=== PATIENT | female | born 1960 | race Caucasian/White ===

== ENCOUNTER 2024-06-02 08:28 | Outpatient (AMB) | payer OTHER, SELFPAY ==
--- NOTE | 2024-06-02 08:36 | A.OFFPC_ITS ---
Vital Signs 06/02/24 08:39 Height 5 ft 7 in Weight 289 lb BMI 45.3 BP 114/62 Blood Pressure Location Rt brachial Position Sitting Pulse 50 Pulse Source Pulse Oximeter Temp 97.8 F Temp Source Oral Pulse Oximetry (%) 99 Oxygen Delivery Method Room Air Intake Visit Reasons: Establish Care Intake Note: New patient visit Trade Mark Examiner Required: No Allergies No Known Allergies [No Known Allergies*] Allergy (Unverified 07/22/20 19:50) Medication List - Last Reconciled 06/02/24 by Tisha Forrester, CHECK OUT CASHIER- bupropion HCl XL 300 mg PO DAILY cholecalciferol (vitamin D3) 50 mcg PO DAILY citalopram 20 mg PO DAILY ferrous sulfate 325 mg PO DAILY lansoprazole 30 mg PO DAILY levothyroxine 125 mcg PO DAILY mecobalamin (vitamin B12) 1,000 mcg PO DAILY Tobacco use date assessed: 06/02/24 Fall risk assessment: No Falls in past year Last assessed Fall Risk: 06/02/24 Dental Screening Dental Screen Date: 06/02/24 Did you have a dental visit in the last 12 months?: Yes Did you have a dental problem in the last 6 months where you did not have access to dental care?: No Was dental information given to patient?: Patient has dentist HPI HPI Comments History of Present Illness Details 63-year-old female with obesity, hypothy roid, chronic GERD, IBS, MDD, INGRID, uterine cancer s/p ALINA, macular degeneration [wet in right, dry in the left], diverticulosis, iron def without anemia requiring IV iron in the past Surgical hx: reun-y gastric bypass 2018 s/p ALINA 5 years ago d/t Stage 1 uterine cancer 2019 bunionectomy 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 Health Maintenance: ? Colon 7 years ago, normal, 10 year recall. Will refer to GI in the future about 1 year before next screen colon due ? Mammo Nov 2023, reports normal. [facility]. Has standing order. ? DEXA ever. Declined ? PAP > [facility] PHYSICIAN OPHTHALMOLOGIST referral needed in [facility]. Cleared for Collections Technician Onc f/u. ? Tdap reports this was 2019, will get Flu at work along w/ COVID booster Has not had Shingles or PCV Specialists: PHYSICIAN OPHTHALMOLOGIST - needs new referral Retinal Specialist Dr Justin Kwong Here today to est care. No previous medical records. Moved to area w/ , Maryann [also a patient here] about 5 years ago from the [facility]. Medical care in the last 5 years has been in [place]. No medical records available to me today. Uterine cancer s/p [facility], reports Stage 1. No meds. Was ff'd by Collections Technician Onc while at the [facility]. Would like to est care w/ regular PHYSICIAN OPHTHALMOLOGIST. MDD & INGRID - Interested in psych referral - will be starting counseling online this week, uses services intermittently.. Sx are not well controlled. Anxious, less interest in life and work, not sleeping well. Sleep onset and maintenance; not using anything to help sleep; used melatonin which caused bad dream. Has never had sleep study. Sleep issues started in the last 3-4 years. Denies snoring or witnessed apnea. Was nodding off while living in the [facility]; not happening any more. >>> Reviewed indications for sleep study, no need @ this time. S/p gastric bypass, no longer ff'd by Surgeon. On Vit B12, Ferrous Sulfate, Vit D and multi Chronic GERD w/o esophagitis, EGD 7 years ago, reports WNL. Has never trialed taper off PPI. has stopped abruptly w/ return of sx. The other day at work, after only having a coffee, as she went to stand, felt very weak, presyncopal and diaphoretic. Was able to sit down. Drink h20 and ate banana to recover. However admits also a headache; took several hours to feel back to baseline. Does not feel like this was orthostatic per se. [place] hypoglycemic. Exam: Awake alert NAD MMM RRR LS CTAB + 1 edema BLE, hairless, skin intact Mood and affect appropriate Labs from today show a normal CBC, normal electrolytes, normal renal function, fasting glucose 102, hemoglobin A1c 5.4%, normal magnesium, normal phosphorus, normal iron and ferritin, normal LFTs, total cholesterol 209, LDL 106, HDL 85, B12 normal, vitamin-D normal, TSH and folate normal, urine microalbumin creatinine normal Plan: Try to taper off PPI. On lansoprazole 30mg QD, decrease to 15mg. Then will trial a slow taper off. Ask pharm about PCV and Shingles series Refill sent on celexa & levothyroxine, same dose. Check labs today to eval reason for the event at work. Slow position changes; hydrate liberally. Refer to Psych bridge program for asst w/ meds & plan. RTO in 6 weeks for CPE, sooner as needed. This note is constructed using voice recognition software. While every effort has been made to ensure accuracy in molding supervisor, still errors may have been included Sometimes, these errors may affect the content or meaning of the given sentence . Total time spent caring for the patient today was 45 minutes. This includes time spent before the visit reviewing the chart, time spent during the visit, and time spent after the visit on documentation [facility] Medical History (Updated 06/02/24 @ 09:44 by Tisha Forrester [facility]) Neuropathy Swelling Arthritis Thyroid disease GERD (gastroesophageal reflux disease) IBS (irritable bowel syndrome) Surgical History (Updated 06/02/24 @ 09:32 by Kary Mandel CMA) H/O bursectomy History of Jeanna-en-Y gastric bypass Family History (Updated 06/02/24 @ 09:25 by Kary Mandel CMA) Mother HTN (hypertension) Hypercholesteremia Diabetes Breast cancer Depression Maternal Grandmother Hypercholesteremia Paternal Grandfather COPD (chronic obstructive pulmonary disease) Father Alcoholism Social History Housing: House Patient Tobacco Use Status: Never used Tobacco e-Cigarette/Vaping Use: Never Used Second Hand Smoke Exposure: No service: No Current occupational status: employed 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 1. Little interest or pleasure in doing things: several days 2. Feeling down, depressed, or hopeless: several days 3. Trouble falling or staying asleep, or sleeping too much: several days 4. Feeling tired or having little energy: not at all 5. Poor appetite or overeating: more than half the days 6. Feeling bad about yourself - or that you are a failure or have let yourself or your family down: not at all 7. Trouble concentrating on things, such as reading the newspaper or watching television: several days 8. Moving or speaking so slowly that other people could have noticed. Or the opposite - being so fidgety or restless that you have been moving around a lot more than usual: not at all 9. Thoughts that you would be better off or of hurting yourself in some way: not at all Total score: 6 Depression Screening Interpretation: Positive Depression Screening Follow-up: Existing condition and In treatment Depression Screening Done: Yes Source: Developed by Drs. Audie Babcock, Faustina Arias, Vinny Hauser and colleagues, with an educational guillermo from [employer]. Thrive Questionnaire Date Thrive assessed: 06/02/24 I am a: Patient What is your living situation today?: I have a steady place to live Within the past 12 months, did the food you bought not last and you didn't have the money to get more?: Never true Within the past 12 months, did you worry whether your food would run out before you got money to buy more?: Never true Do you have trouble paying for medicines?: No Do you have trouble getting transportation to medical appointments?: No Do you have trouble paying your heating and electricity bill?: No Do you have trouble taking care of your child, family member or friend?: No Do you have trouble with day-to-day activities such as bathing, preparing meals, shopping, managing finances, etc.?: No Are you currently unemployed and looking for a job?: No Are you interested in more education?: No Please select the resources that you would like help with: None Currently or been in a relationship where the following occur: No concerns reported THRIVE Score: 0 AUDIT C Alcohol Use Questionnaire (AUDIT-C) 1. How often do you have a drink containing alcohol?: Never 3. How often do you have six or more drinks on one occasion?: Never Total Score: 0 Score Reviewed/Action Taken: Yes INGRID-7 AMB Questionnaire INGRID-7 Date INGRID - 7 assessed: 06/02/24 Feeling nervous, anxious, or on edge: 3 = Nearly every day Not being able to stop or control worryin = More than half the days Worrying too much about different things: 2 = More than half the days Trouble relaxin = More than half the days Being so restless that it is hard to sit still: 0 = Not at all Becoming easily annoyed or irritable: 2 = More than half the days Feeling afraid as if something awful might happen: 2 = More than half the days Total INGRID-7 score (0-4 normal; 5-9 mild; 10-14 moderate; 15-21 severe): 13 Source: Developed by Drs. Audie Babcock, Faustina Arias, Vinny Hauser and colleagues, with an educational guillermo from [employer]. INGRID-7 Assessment Billing INGRID-7 Assessment Tool: INGRID-7 Assessment 79303 Physical exam (Primary Care) Vital Signs: Last Vital Signs Temp 97.8 F 06/02/24 08:39 Pulse 50 06/02/24 08:39 BP 114/62 06/02/24 08:39 Pulse Ox 99 06/02/24 08:39 Oxygen Delivery Method Room Air 06/02/24 08:39 BMI result Body Mass Index 45.3 BMI Assessment/Plan discussion: High BMI High, discussed plan: lifestyle Tobacco/Smoking Status: Tobacco use Status Tobacco use date assessed 06/02/24 06/02/24 08:38 Patient Tobacco Use Status Never used Tobacco 06/02/24 08:38 e-Cigarette/Vaping Use Never Used 06/02/24 08:38 PHQ-9: PHQ-9 Score PHQ-9: Total score 6 06/02/24 09:45 Depression Screening Interpretation: Positive Depression Screening Follow-up: Existing condition and In treatment Thrive Assessment: Date of Thrive Assessment Date Thrive assessed 06/02/24 06/02/24 09:30 Currently or been in a relationship where the following occur: No concerns reported Assessment and Plan Assessment & Plan (1) Hypothyroid: Code(s): E03.9 - Hypothyroidism, unspecified Qualifiers: Hypothyroidism type: acquired Qualified Code(s): E03.9 - Hypothyroidism, unspecified (2) Morbid obesity with BMI of 45.0-49.9, adult: Comment: bmi > 45 Code(s): E66.01 - Morbid (severe) obesity due to excess calories; Z68.42 - Body mass index [BMI] 45.0-49.9, adult (3) GERD without esophagitis: Code(s): K21.9 - Gastro-esophageal reflux disease without esophagitis (4) INGRID (generalized anxiety disorder): Code(s): F41.1 - Generalized anxiety disorder (5) MDD (major depressive disorder), recurrent episode: Code(s): F33.9 - Major depressive disorder, recurrent, unspecified Qualifiers: Major depression episode severity: moderate Qualified Code(s): F33.1 - Major depressive disorder, recurrent, moderate (6) Insomnia: Code(s): G47.00 - Insomnia, unspecified Qualifiers: Insomnia type: due to other mental disorder Qualified Code(s): F51.05 - Insomnia due to other mental disorder; F99 - Mental disorder, not otherwise specified (7) Iron deficiency: Code(s): E61.1 - Iron deficiency (8) Gastric bypass status for obesity: Code(s): Z98.84 - Bariatric surgery status (9) Uterine cancer: Comment: uterine cancer s/p [facility], Stage 1 2019 Code(s): C55 - Malignant neoplasm of uterus, part unspecified Qualifiers: Malignant neoplasm of uterus location: unspecified site of uterus Qualified Code(s): C55 - Malignant neoplasm of uterus, part unspecified (10) Diverticulosis: Code(s): K57.90 - Diverticulosis of intestine, part unspecified, without perforation or abscess without bleeding (11) Macular degeneration of both eyes: Comment: macular degeneration [wet in right, dry in the left] Code(s): H35.30 - Unspecified macular degeneration Qualifiers: Macular degeneration type: unspecified type Qualified Code(s): H35.30 - Unspecified macular degeneration Orders: Orders Complete Blood Count no Diff Today E03.9 - Hypothyroidism, unspecified, E61.1 - Iron deficiency, Z98.84 - Bariatric surgery status Hemoglobin A1c Today E03.9 - Hypothyroidism, unspecified, E61.1 - Iron deficiency, Z98.84 - Bariatric surgery status Lipid Panel Today E03.9 - Hypothyroidism, unspecified, E61.1 - Iron deficiency, Z98.84 - Bariatric surgery status Vitamin B12 and Folate Today E03.9 - Hypothyroidism, unspecified, E61.1 - Iron deficiency, Z98.84 - Bariatric surgery status Ferritin Today E03.9 - Hypothyroidism, unspecified, E61.1 - Iron deficiency, Z98.84 - Bariatric surgery status Vitamin D 25-OH Total Today E03.9 - Hypothyroidism, unspecified, E61.1 - Iron deficiency, Z98.84 - Bariatric surgery status Magnesium Today E03.9 - Hypothyroidism, unspecified, E61.1 - Iron deficiency, Z98.84 - Bariatric surgery status Phosphorus Today E03.9 - Hypothyroidism, unspecified, E61.1 - Iron deficiency, Z98.84 - Bariatric surgery status Comprehensive [place]. Panel Fast Today E03.9 - Hypothyroidism, unspecified, E61.1 - Iron deficiency, Z98.84 - Bariatric surgery status IRON PROFILE Today E03.9 - Hypothyroidism, unspecified, E61.1 - Iron deficiency, Z98.84 - Bariatric surgery status Microalbumin, Random (w Creat) Today E03.9 - Hypothyroidism, unspecified, E61.1 - Iron deficiency, Z98.84 - Bariatric surgery status TSH reflex Free T4 Today E03.9 - Hypothyroidism, unspecified, E61.1 - Iron deficiency, Z98.84 - Bariatric surgery status Referrals Psychiatry Outpatient Consultation Service F33.9 - Major depressive disorder, recurrent, unspecified, F41.1 - Generalized anxiety disorder, G47.00 - Insomnia, unspecified INSTALLATION SPECIALIST Referral C55 - Malignant neoplasm of uterus, part unspecified Medications: New citalopram 20 mg PO DAILY 90 tabs 0RF levothyroxine 125 mcg PO DAILY 90 tabs 1RF Patient Instructions: Plan: Ask pharm about PCV and Shingles series Refil sent on celexa; refil levo based on labs RTO in 6 weeks for CPE, sooner as needed. Walk-In Care (Urgent Care): We Make it Easy Walk-in for urgent medical issues such as: ? Seasonal Allergies ? Insect Bites ? Cough ? Diarrhea ? Acute Asthma Attacks ? Back, Knee or Joint Pain ? Ear Infection ? Fever without a Rash ? Headaches ? Nausea ? [place], Rash or Skin Irritation ? Sore Throat ? Sports Physicals ? Vomiting Most insurances are accepted. Patients do not need to be part of the [facility] to seek care at the walk-in clinic. Locations [address] [facility] , [place] [address] ? [phone] [facility] Walk-In Care in [place] provides services to ages 18 and over. Open Sunday-Sunday: 8 a.m. to 5 p.m. and Sunday: 9 a.m. to 3 p.m.* *Hours may vary due to staffing availability. To confirm Walk-In Care hours in [place], please call [phone]. [address] [place] [address] ? [phone] [facility] Walk-In Care in [place] provides services to ages 12 and over. Open Sunday-Sunday: 8 a.m. to 5 p.m. Hours may vary due to staffing availability. To confirm Walk-In Care hours in [place], please call [phone]. LABORATORY SERVICES: [facility] ? Primary Location [address] [place] [address] Sunday through Sunday 6:00 AM ? 5:00 PM Sunday 7:00 AM ? 11:00 AM* [phone] The [facility] is centrally located near the front entrance of the [facility] for easy outpatient access. Convenient parking is provided for outpatients. *Hours may vary due to staffing availability. To confirm Laboratory hours for any location, please call [phone]. Offsite Location For your convenience, we offer offsite laboratory draw stations at the following locations: [address] [place] [address] ? [address], [address] Sunday through Sunday 7:30 AM ? 1:00 PM* [phone] *Hours may vary due to staffing availability. To confirm Laboratory hours for any location, please call [phone]. [place] ? [address] Sunday through Sunday 6:00 AM ? 3:30 PM* Sunday 6:30 AM ? 3 PM* [phone] *Hours may vary due to staffing availability. To confirm Laboratory hours for any location, please call [phone] [place] [address] Sunday through Sunday 7:30 AM ? 4:00 PM* [phone] *Hours may vary due to staffing availability. To confirm Laboratory hours for any location, please call [phone] [place] [address] Sunday through 9:00 AM ? 4:00 PM* *Hours may vary due to staffing availability. To confirm Laboratory hours for any location, please call [phone]. Appointments are not necessary. Walk-ins are welcome. Like all the departments throughout the [facility], our Lab undergoes frequent reviews to ensure the quality and accuracy of test results, and our staff takes special pride in its status as a nationally accredited facility. Patient Portal: ONE PATIENT. ONE RECORD. BETTER CARE. [facility] has a fully integrated, cutting- edge mobile electronic health information system that has revolutionized the way we care for our patients and manage our organization. This system improves communication and coordination enabling us to provide safe, higher-quality care, and an overall positive experience for staff and patients. Our first priority, as always, is to deliver the highest quality care possible. The system is running in the background supporting that priority. This portal is for all [facility] services and practices. If you are experiencing any technical difficulties with enrolling or logging into the Patient Portal please complete the [facility] Patient Portal Technical Support Form. [facility] now offers a new secure on-line interactive tool for patients to review their health information ? Patient Portal. This interactive web portal will enable patients and their families to take an active role in their care by providing easy, secure access to their health information via the internet. The Patient Portal provides patients with instant access to their health information, including laboratory results, medications, allergies, demographic information, visit history, and more. In addition to managing their own care, parents and health care proxies with authorized consent will appreciate the ability to access the records of those individuals for whom they provide care. Please note: if you wish to gain access (Proxy) to another patient?s portal, you will be required to come to the Medical Records Department in person at [facility]. Both the patient giving proxy access and the proxy will need to provide photo identification and complete the appropriate authorization. The Patient Portal also allows track their appointments online. The [facility] Patient Portal also saves patients time by allowing them to submit updates to their demographic and contact information prior to their visits. Portal email notifications will also alert patients to any new activity on their portal, such as test results and new appointments. In order to initially enroll in the [facility] Patient Portal, you will need to enter some required information including the following: ? your [facility] Medical Record number ? your personal home email address ? name ? date of Please note: In order to enroll in the [facility] Patient Portal, we need to have your email address on file in your electronic medical record. The email address needs to be specific for one person (yourself) in order for your Portal enrollment to be successful. You can update your email address in person with our Registration staff when you are registering for a hospital visit. O justinawise, you will need to come to the Health Information Management (Medical Records) Department at [facility]. We are open from Sunday ? Sunday from 7:30 a.m. ? 4:30 p.m. You will be required to present a photo id. Once you have successfully enrolled in the Patient Portal, you will receive a one-time user id and password for the Portal, sent to your email address. This will allow you to log into the Patient Portal within 99 hrs and reset your own logon id and password, and define personal security questions. Once your permanent login and password have been set, you can log into the [facility] Patient Portal at any time via the blue button above or from the Portal Logon button on any page of the [facility] website. [facility] encourage all of our patients to enroll in Patient Portal as it presents a valuable opportunity for patients and their families to actively participate in their care and stay healthy Welcome to [facility]. We look forward to working with you. Coding Level of Care Code New Pt Level 4 (02147) Diagnoses Acquired hypothyroidism E03.9 Hypothyroidism type: acquired Morbid obesity with BMI of 45.0-49.9, adult E66.01; Z68.42 GERD without esophagitis K21.9 INGRID (generalized anxiety disorder) F41.1 Moderate episode of recurrent major depressive disorder F33.1 Major depression episode severity: moderate Insomnia due to other mental disorder F51.05; F99 Insomnia type: due to other mental disorder Iron deficiency E61.1 Gastric bypass status for obesity Z98.84 Malignant neoplasm of uterus, unspecified site C55 Malignant neoplasm of uterus location: unspecified site of uterus Diverticulosis K57.90 Macular degeneration of both eyes, unspecified type H35.30 Macular degeneration type: unspecified type Additional Codes INGRID-7 Assessment Billing - INGRID-7 Assessment Tool: INGRID-7 Assessment [id number] ([id number])
[2024-06-02 08:39] VITALS: BP 114/62; PULSE 50; TEMP 36.6; O2SAT 99; BMI 45.3
== END 2024-06-02 09:22 | disposition home or self-care (01) ==
PROVIDERS: PCP Nurse Practitioner Family; Visit Provider Nurse Practitioner Family
DX: E03.9 Hypothyroidism, unspecified (principal); E66.01 Morbid (severe) obesity due to excess calories; Z68.42 Body mass index [BMI] 45.0-49.9, adult; K21.9 Gastro-esophageal reflux disease without esophagitis; F41.1 Generalized anxiety disorder; F33.1 Major depressive disorder, recurrent, moderate; F51.05 Insomnia due to other mental disorder; F99 Mental disorder, not otherwise specified; E61.1 Iron deficiency; Z98.84 Bariatric surgery status; Z85.42 Personal history of malignant neoplasm of other parts of uterus; K57.90 Diverticulosis of intestine, part unspecified, without perforation or abscess without bleeding; H35.30 Unspecified macular degeneration
CPT/HCPCS: 96127; 99204

== ENCOUNTER 2024-06-02 09:26 | Outpatient (REF) | payer OTHER, SELFPAY ==
[2024-06-02 11:34] LABS: Hematocrit 46.5 % (37.0-47.0); Hemoglobin 14.9 g/dl (12.0-16.0); Mean Corpuscular Hemoglobin 30.5 pg (27.0-33.0); Mean Corpuscular Volume 95.3 fL (80.0-98.0); Mean Platelet Volume 10.7 fL (9.4-12.3); Platelet Count 329 X10*3/uL (160-400); Red Blood Count 4.88 X10*6/uL (4.20-5.50); White Blood Count 6.2 X10*3/uL (4.8-10.8)
[2024-06-02 11:40] LABS: Estimated Average Glucose 108 mg/dL; Hemoglobin A1c % 5.4 % (<6.0)
[2024-06-02 12:30] LABS: Alanine Aminotransferase 14 U/L (0-31); Albumin Level 4.3 g/dL (3.5-5.0); Alkaline Phosphatase 109 U/L (39-117); Anion Gap 12 (12-20); Aspartate Amino Transferase 13 U/L (5-31); Bilirubin Total 0.5 mg/dL (0.0-1.0); Blood Urea Nitrogen 11 mg/dL (9-16); Calcium 9.9 mg/dL (8.4-10.2); Carbon Dioxide 28 mmol/L (22-29); Chloride 106 mmol/L (96-108); Cholesterol 209 mg/dL (<200); Estimated Glomerular Filt Rate > 60; Glucose Fasting 102 mg/dL (60-99); HDL Cholesterol 85 mg/dL (>40); Iron 134 mcg/dL (30-160); LDL Cholesterol Calculated 106 mg/dL (<100); Magnesium 2.4 mg/dL (1.6-2.6); Percent Iron Saturation 40 % (15-50); Phosphorus 3.5 mg/dL (2.7-4.5); Potassium 3.8 mmol/L (3.3-5.1); Sodium 142 mmol/L (135-145); Total Iron Binding Capacity 331 mcg/dL (228-428); Total Protein 7.3 g/dL (6.5-8.0); Triglycerides 91 mg/dL (<150); Unsaturated Iron Binding 197 ug/dL
[2024-06-02 12:31] LABS: Folate 10.2 ng/mL (> or = 4.0); Vitamin B12 663 pg/mL (200-900)
[2024-06-02 12:44] LABS: Ferritin 23 ng/mL (10-250); TSH reflex Free T4 1.95 uIU/mL (0.32-4.0)
[2024-06-02 13:09] LABS: Creatinine Urine 101.82 mg/dL; Microalbumin Urine < 5.0 mg/L
== END 2024-06-02 09:27 | disposition home or self-care (01) ==
LOC: HO.WFDLDS 09:26
PROVIDERS: Visit Provider Nurse Practitioner Family
DX: E61.1 Iron deficiency (principal); Z98.84 Bariatric surgery status; E03.9 Hypothyroidism, unspecified; Z13.1 Encounter for screening for diabetes mellitus
CPT/HCPCS: 36415; 80053; 80061; 82043; 82306; 82570; 82607; 82728; 82746; 83036; 83540; 83735; 84100; 84443; 85027

== ENCOUNTER 2024-07-16 11:56 | Outpatient (AMB) | payer OTHER, SELFPAY ==
--- NOTE | 2024-07-16 11:58 | A.OFFPC_ITS ---
Vital Signs 07/16/24 12:04 Height 5 ft 7 in Weight 291 lb 4 oz BMI 45.6 BP 116/68 Blood Pressure Location Rt brachial Position Sitting Respiration 15 Pulse 75 Pulse Source Pulse Oximeter Pulse Oximetry (%) 98 Oxygen Delivery Method Room Air Intake Visit Reasons: 6 weeks CPE Intake Note: Patient is here for a physical. Allergies No Known Allergies [No Known Allergies*] Allergy (Verified 07/16/24 12:00) Medication List - Last Reconciled 07/16/24 by ROSE GandhiP- bupropion HCl XL 300 mg PO DAILY cholecalciferol (vitamin D3) 50 mcg PO DAILY citalopram 20 mg PO DAILY ferrous sulfate 325 mg PO DAILY lansoprazole 30 mg PO DAILY levothyroxine 125 mcg PO DAILY mecobalamin (vitamin B12) 1,000 mcg PO DAILY Tobacco use date assessed: 06/02/24 Dental Screening Dental Screen Date: 06/02/24 HPI HPI Comments History of Present Illness Details 63-year-old female with obesity, hypothy roid, chronic GERD, IBS, MDD, INGRID, uterine cancer s/p ALINA, macular degeneration [wet in right, dry in the left], diverticulosis, iron def without anemia requiring IV iron in the past Surgical hx: reun-y gastric bypass 2018 s/p ALINA 5 years ago d/t Stage 1 uterine cancer 2019 bunionectomy tonsillectomy 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 Health Maintenance: ?Colon 7 years ago, normal, 10 year recall. Will refer to GI in the future about 1 year before next screen colon due ?Mammo Nov 2023, reports normal. [facility]. Has standing order. ?DEXA never. Declined ?PAP > [facility] REPRODUCTION PRODUCTION MANAGER referral needed in [facility]. Cleared for Spooling Supervisor Onc f/u. ?Tdap reports this was 2019, will get Flu at work along w/ COVID booster Has not had Shingles or PCV Specialists: REPRODUCTION PRODUCTION MANAGER - referred to [facility], told they are not taking new patients. Working on est care, will let me know if i need to send updated referral Retinal Specialist Dr Justin richardt 1 week ago, has not required injections in 1 year. Both eyes are dry. Optho Dr Elenita Weiss referred to bridge program at last OV, still has not heard. Chart reviewed, cleared to be seen but not scheduled. I have sent a message to Alvin Rasheed to schedule her. Here today for CPE. No further events. Skin - no worries or concerns Has episodes of purpura with scratching forearms. Declined Derm at this time. GI - taking 30mg every other day; reflux sx are well controlled. Will trial 15mg every other day w goal of stopping. Needs refills of all meds sent to [facility], leaving [facility]. Breathing is good. No chest pain. No falls. No ED or hospital visits. Normal bowel movements Stress incont. Not bothersome. Wears pad. Thigh cramps at night. Started self on Ca+ this has improved. Diet - not great. + wt gain. Will work on this. ACP: Has HCP in place. No MOLST. NO living Will. Plan: Cont meds as currently prescribed except cont to try to taper off PPI Let me know about REPRODUCTION PRODUCTION MANAGER FU with Psych let me know if you dont hear from them Consider MOLST and bring back along w/ HCP Work on getting PCV and Shingles please Consider echo in the future for murmur and edema BLE let me know if purpura on bilat arms gets worse RTO 6 months routine f/u labs 1 week before, sooner PRN [facility] Medical History (Updated 07/16/24 @ 14:58 by Tisha Forrester, [facility]) Neuropathy Swelling Arthritis Thyroid disease GERD (gastroesophageal reflux disease) IBS (irritable bowel syndrome) Surgical History (Updated 06/02/24 @ 09:32 by Kary Mandel CMA) H/O bursectomy History of Jeanna-en-Y gastric bypass Family History (Updated 06/02/24 @ 09:25 by Kary Mandel CMA) Mother HTN (hypertension) Hypercholesteremia Diabetes Breast cancer Depression Maternal Grandmother Hypercholesteremia Paternal Grandfather COPD (chronic obstructive pulmonary disease) Father Alcoholism Social History Housing: House Patient Tobacco Use Status: Never used Tobacco e-Cigarette/Vaping Use: Never Used Second Hand Smoke Exposure: No service: No Current occupational status: employed 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 1. Little interest or pleasure in doing things: several days 2. Feeling down, depressed, or hopeless: more than half the days 3. Trouble falling or staying asleep, or sleeping too much: more than half the days 4. Feeling tired or having little energy: more than half the days 5. Poor appetite or overeating: more than half the days 6. Feeling bad about yourself - or that you are a failure or have let yourself or your family down: not at all 7. Trouble concentrating on things, such as reading the newspaper or watching television: several days 8. Moving or speaking so slowly that other people could have noticed. Or the opposite - being so fidgety or restless that you have been moving around a lot more than usual: not at all 9. Thoughts that you would be better off or of hurting yourself in some way: not at all Total score: 10 Depression Screening Interpretation: Positive Depression Screening Done: Yes 53561 - PHQ-9 Billing: Yes Source: Developed by Drs. Audie Babcock, Faustina Arias, Vinny Hauser and colleagues, with an educational guillermo from [employer]. Thrive Questionnaire Date Thrive assessed: 07/16/24 I am a: Patient What is your living situation today?: I have a steady place to live Within the past 12 months, did the food you bought not last and you didn't have the money to get more?: Never true Within the past 12 months, did you worry whether your food would run out before you got money to buy more?: Never true Do you have trouble paying for medicines?: No Do you have trouble getting transportation to medical appointments?: No Do you have trouble paying your heating and electricity bill?: No Do you have trouble taking care of your child, family member or friend?: No Do you have trouble with day-to-day activities such as bathing, preparing meals, shopping, managing finances, etc.?: No Are you currently unemployed and looking for a job?: No Are you interested in more education?: No Please select the resources that you would like help with: None THRIVE Score: 0 INGRID-7 AMB Questionnaire INGRID-7 Date INGRID - 7 assessed: 07/16/24 Feeling nervous, anxious, or on edge: 1 = Several days Not being able to stop or control worryin = Several days Worrying too much about different things: 1 = Several days Trouble relaxin = Several days Being so restless that it is hard to sit still: 1 = Several days Becoming easily annoyed or irritable: 2 = More than half the days Feeling afraid as if something awful might happen: 0 = Not at all Total INGRDI-7 score (0-4 normal; 5-9 mild; 10-14 moderate; 15-21 severe): 7 Source: Developed by Drs. Audie Babcock, Faustina Arias, Vinny Hauser and colleagues, with an educational guillermo from [employer]. INGRID-7 Assessment Billing INGRID-7 Assessment Tool: INGRID-7 Assessment 09632 Physical exam (Primary Care) Vital Signs: Last Vital Signs Pulse 75 07/16/24 12:04 Resp 15 07/16/24 12:04 BP 116/68 07/16/24 12:04 Pulse Ox 98 07/16/24 12:04 Oxygen Delivery Method Room Air 07/16/24 12:04 BMI result Body Mass Index 45.6 BMI Assessment/Plan discussion: High BMI High, discussed plan: lifestyle Tobacco/Smoking Status: Tobacco use Status Tobacco use date assessed 06/02/24 07/16/24 12:00 Patient Tobacco Use Status Never used Tobacco 07/16/24 12:00 e-Cigarette/Vaping Use Never Used 07/16/24 12:00 PHQ-9: PHQ-9 Score PHQ-9: Total score 10 07/16/24 12:09 Depression Screening Interpretation: Positive Thrive Assessment: Date of Thrive Assessment Date Thrive assessed 07/16/24 07/16/24 12:07 Advance Care Planning discussion: Exists, not on file Date of discussion: 07/16/24 Who was present: self Forms completed: MOLST Time spent: 1-15 minutes, not on file Actual minutes spent: 3 Const Other: General: Well developed, well nourished, in no acute distress. Appears stated age. Head: Normocephalic, atraumatic. Eyes: Pupils are equal, round and reactive to light and accommodation. Conjunctivae are clear. Vision grossly normal. Ears: TMs clear AU, EACS WNL Nose: Patent, without discharge. Mouth: There are no ulcers or lesions noted. No inflammation, no post nasal drip, no plaques nor exudates. Neck: Supple, no adenopathy or thyromegaly. Lungs: Clear to auscultation bilaterally. No rales, rhonchi or wheeze noted. Good air flow in all piña. Heart: Regular rate and rhythm. No click, rubs or gallops are noted. 1/6 systolic murmur L sternal border Abdomen: Bowel sounds present in all quadrants. The abdomen is soft, nontender, with no masses or organomegaly noted. No hernias are noted. Musculoskeletal: Joints are nontender, without swelling, redness, or effusions. Range of motion is observed to be normal. Pulses: Peripheral pulses are equal and palpable bilaterally. Extremities: No clubbing, cyanosis noted. +1 edema ble, R>L, decreased PP bilat, skin intact Neurologic: Gait and station normal. Cranial Nerves 2-12 intact. Motor strengt h grossly symmetrical and intact. No sensory loss. Balance normal. Skin: No ulcers, or lesions noted. Turgor is good. Skin color is good. Hair and nails are without abnormalities. Fungal rash under pannus - mild Psych: Normal eye contact, affect and mood appropriate, and normal interactions. Patient is alert and appropriate to context. Assessment and Plan Assessment & Plan (1) Hypothyroid: Code(s): E03.9 - Hypothyroidism, unspecified Qualifiers: Hypothyroidism type: acquired Qualified Code(s): E03.9 - Hypothyroidism, unspecified (2) Iron deficiency: Code(s): E61.1 - Iron deficiency (3) Gastric bypass status for obesity: Code(s): Z98.84 - Bariatric surgery status (4) Heart murmur: Code(s): R01.1 - Cardiac murmur, unspecified (5) PVD (peripheral vascular disease): Code(s): I73.9 - Peripheral vascular disease, unspecified (6) Menopause: Code(s): Z78.0 - Asymptomatic menopausal state (7) Encounter for general adult medical examination without abnormal findings: Code(s): Z00.00 - Encounter for general adult medical examination without abnormal findings (8) Advance care planning: Code(s): Z71.89 - Other specified counseling (9) GERD without esophagitis: Code(s): K21.9 - Gastro-esophageal reflux disease without esophagitis Orders: Orders Comprehensive [place]. Panel Fast 11/05/24 E03.9 - Hypothyroidism, unspecified, E61.1 - Iron deficiency, Z98.84 - Bariatric surgery status Lipid Panel 11/05/24 E03.9 - Hypothyroidism, unspecified, E61.1 - Iron deficiency, Z98.84 - Bariatric surgery status Vitamin D 25-OH Total 11/05/24 E03.9 - Hypothyroidism, unspecified, E61.1 - Iron deficiency, Z98.84 - Bariatric surgery status Vitamin B12 and Folate 11/05/24 E03.9 - Hypothyroidism, unspecified, E61.1 - Iron deficiency, Z98.84 - Bariatric surgery status Hemoglobin A1c 11/05/24 E03.9 - Hypothyroidism, unspecified, E61.1 - Iron deficiency, Z98.84 - Bariatric surgery status TSH reflex Free T4 11/05/24 E03.9 - Hypothyroidism, unspecified, E61.1 - Iron deficiency, Z98.84 - Bariatric surgery status IRON PROFILE 11/05/24 E03.9 - Hypothyroidism, unspecified, E61.1 - Iron deficiency, Z98.84 - Bariatric surgery status Medications: New bupropion HCl XL 300 mg PO DAILY 90 tabs 0RF Changed From lansoprazole 30 mg PO DAILY To lansoprazole taper off 30 mg PO DAILY 30 caps 0RF From cholecalciferol (vitamin D3) 50 mcg PO DAILY To cholecalciferol (vitamin D3) 50 mcg PO DAILY 90 days 90 caps 2RF From ferrous sulfate 325 mg PO DAILY To ferrous sulfate 325 mg PO DAILY 90 days 90 tabs 2RF From mecobalamin (vitamin B12) 1,000 mcg PO DAILY To mecobalamin (vitamin B12) 1,000 mcg PO DAILY 90 days 90 tabs 2RF Refilled citalopram 20 mg PO DAILY 90 tabs 0RF Coding Level of Care Code Est Pt Prev Care 40-64y(51269) Diagnoses Acquired hypothyroidism E03.9 Hypothyroidism type: acquired Iron deficiency E61.1 Gastric bypass status for obesity Z98.84 Heart murmur R01.1 PVD (peripheral vascular disease) I73.9 Menopause Z78.0 Encounter for general adult medical examination without abnormal findings Z00.00 Advance care planning Z71.89 GERD without esophagitis K21.9 Additional Codes INGRID-7 Assessment Billing - INGRID-7 Assessment Tool: INGRID-7 Assessment [id number] ([id number]) Vital Signs *Quality* - Advance Care Planning discussion: Exists, not on file ([id number]) Vital Signs *Quality* - Time spent: 1-15 minutes, not on file ([id number])
[2024-07-16 12:04] VITALS: BP 116/68; PULSE 75; RESP 15; O2SAT 98; BMI 45.6
== END 2024-07-16 12:40 | disposition home or self-care (01) ==
PROVIDERS: PCP Internal Medicine; Visit Provider Nurse Practitioner Family
DX: Z00.00 Encounter for general adult medical examination without abnormal findings (principal); E03.9 Hypothyroidism, unspecified; I73.9 Peripheral vascular disease, unspecified; E61.1 Iron deficiency; Z98.84 Bariatric surgery status; R01.1 Cardiac murmur, unspecified; Z78.0 Asymptomatic menopausal state; Z71.89 Other specified counseling; K21.9 Gastro-esophageal reflux disease without esophagitis
CPT/HCPCS: 1124F; 99396

== ENCOUNTER 2024-10-16 15:12 | Outpatient (AMB) | payer OTHER, SELFPAY ==
--- NOTE | 2024-10-16 12:33 | A.OFFPSYCH_ITS ---
Intake Intake Visit Reasons: consultation Drapery Cutter Required: No Allergies No Known Allergies [No Known Allergies*] Allergy (Verified 07/16/24 12:00) Medication List - Last Reconciled 10/20/24 by Otilia Wyatt APRN bupropion HCl XL 300 mg PO DAILY cholecalciferol (vitamin D3) 50 mcg PO DAILY 90 days citalopram 20 mg PO DAILY ferrous sulfate 325 mg PO DAILY 90 days lansoprazole 30 mg PO DAILY levothyroxine 125 mcg PO DAILY lithium carbonate 150 mg PO DAILY mecobalamin (vitamin B12) 1,000 mcg PO DAILY 90 days HPI- Psychiatric Chief Complaint: consultation HPI Narrative: pt referred by pcpc fro evaluation of depression and anxiety and current medication efficacy; pt reports meds have been the jose for years; she feels depressed; little interest or pleasure from activities, feels down and depressed many days; feels like she is fighting through fog. Pt has poor sleep initiation and wakes at 3- 4 am . pt reports feeling bad about self, no energy, feels like a failure, Pt has trouble concentrating and focusing,she denies SI or HI, Pt frequently feels on edge. she has trouble relaxing. she is easily annoyed and irritable. Past Psychiatric History: 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 failed trials of lexapro (tremors) effexor (not effective) No IPLOC. Subjective Subjective Subjective Medication Compliance: Yes Side effects from medications: No Review of Systems Medical Review of Systems: unchanged Mental Status Exam Mental Status Exam Patient Appearance: Well Grooomed and Appropriate Patient Orientation: Person, Place, Time and Situation Level of Consciousness: Awake, Appropriate and Alert Patient Behavior: Appropriate and Cooperative Mood Description: Withdrawn, Depressed and Flat Affect Description: Withdrawn, Depressed and Flat Patient Cognition Impaired: No Ability to Follow Directions: Good Speech Pattern: Impoverished and Monotone Memory Description: Intact Hallucinations: None Delusions: Not Present Thought Process: Intact and Goal Oriented Thought Content: positive for Intact and positive for Goal Oriented Judgement: Fair Assessment and Plan Assessment & Plan (1) MDD (major depressive disorder), recurrent episode: Status: Acute Qualifiers: Major depression episode severity: moderate Qualified Code(s): F33.1 - Major depressive disorder, recurrent, moderate Code(s): F33.9 - Major depressive disorder, recurrent, unspecified (2) INGRID (generalized anxiety disorder): Status: Acute Code(s): F41.1 - Generalized anxiety disorder (3) Gastric bypass status for obesity: Status: Acute Code(s): Z98.84 - Bariatric surgery status Plan discussed risks of changing medication i,e risk of taper leading to worsening depression; discussed options of switching to alternative antidepressant, adding SGA such as abikify, rexulti, or adding lithium low dose as adjunct. Discussed option of TMS. Plan: continue celexa and wellbutrin add lithium 150mg daily Medications: New lithium carbonate 150 mg PO DAILY 30 caps 1RF lithium carbonate 150 mg PO DAILY 30 caps 1RF Orders: Orders [place] 10/16/24 F33.1 - Major depressive disorder, recurrent, moderate Counseling and coordination of Care Pt. Self Management counseling: Exercise, Light exposure, Maintenance-social rhythm, Mod caffeine/ETOH intake, Sleep hygiene, Behavior activation, Cognitive restructuring and Problem solving Medication management counseling: Effectiveness, Side effects, Dosing range, Duration, Drug interaction and Adherence Diagnosis and Prognosis Counseling: Accuracy of diagnosis, Prognosis over time, Impact of diagnosis on life functions, Impact of family relationship, Problematic behaviors secondary to diagnosis and Adequacy of current interventions Details: I spent 75 minutes reviewing the record, seeing the patient and documenting in the medical record. Counseling provided to the patient/caregiver as outlined below. Addressed patient/caregiver concerns regarding current medication regime including effective adherence. Addressed patient/caregiver concerns regarding diagnosis and prognosis including accuracy of diagnosis, prognosis over time, impact of diagnosis. Addressed patient/caregiver concerns regarding impact of recent stressors. [facility] Medical History (Updated 07/16/24 @ 14:58 by Tisha Forrester [facility]) Neuropathy Swelling Arthritis Thyroid disease GERD (gastroesophageal reflux disease) IBS (irritable bowel syndrome) Surgical History (Updated 06/02/24 @ 09:32 by Kary Mandel CMA) H/O bursectomy History of Jeanna-en-Y gastric bypass Family History (Updated 06/02/24 @ 09:25 by Kary Mandel CMA) Mother HTN (hypertension) Hypercholesteremia Diabetes Breast cancer Depression Maternal Grandmother Hypercholesteremia Paternal Grandfather COPD (chronic obstructive pulmonary disease) Father Alcoholism Social History Housing: House Patient Tobacco Use Status: Never used Tobacco e-Cigarette/Vaping Use: Never Used Second Hand Smoke Exposure: No service: No Current occupational status: employed 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
== END 2024-10-16 15:33 | disposition home or self-care (01) ==
LOC: HO.HOP 15:12
PROVIDERS: PCP Nurse Practitioner Family; Visit Provider Clinical Nurse Specialist Psychiatric/Mental Health
DX: F33.1 Major depressive disorder, recurrent, moderate (principal); F41.1 Generalized anxiety disorder; Z98.84 Bariatric surgery status
CPT/HCPCS: 90792

== ENCOUNTER → 2024-10-16 15:12 | Outpatient (BNVA) | payer OTHER, SELFPAY | PROVIDERS: PCP Nurse Practitioner Family; Visit Provider Clinical Nurse Specialist Psychiatric/Mental Health | DX: F33.1 Major depressive disorder, recurrent, moderate (principal); F41.1 Generalized anxiety disorder; Z98.84 Bariatric surgery status | CPT/HCPCS: 90792 ==

== ENCOUNTER 2024-11-10 16:06 | Outpatient (AMB) | payer BC, SELFPAY ==
--- NOTE | 2024-11-10 15:52 | MHC.OFFVISPS ---
Intake Intake Visit Reasons: f/u consultation Health Director Required: No Allergies No Known Allergies [No Known Allergies*] Allergy (Verified 07/16/24 12:00) Medication List - Last Reconciled 11/10/24 by Otilia Wyatt APRN bupropion HCl XL 300 mg PO DAILY cholecalciferol (vitamin D3) 50 mcg PO DAILY 90 days citalopram 20 mg PO DAILY ferrous sulfate 325 mg PO DAILY 90 days lansoprazole 30 mg PO DAILY levothyroxine 125 mcg PO DAILY lithium carbonate 150 mg PO DAILY mecobalamin (vitamin B12) 1,000 mcg PO DAILY 90 days HPI- Psychiatric Chief Complaint: f/u consultation HPI Narrative: In interim patient had a negative reaction to lithium. She reports nausea after taking lithium despite taking it with food. She has stopped the lithium. She continues to be anxious and depressed she states that she has never been this depressed in the past. She has low energy low motivation lack of interest in activities she reports increased negative thinking. She reports increased irritability and low frustration tolerance. Past Psychiatric History: 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 failed trials of lexapro (tremors) effexor (not effective) No IPLOC. Subjective Subjective Subjective Medication Compliance: Yes Side effects from medications: No Review of Systems Medical Review of Systems: unchanged Mental Status Exam Mental Status Exam Patient Appearance: Well Grooomed and Appropriate Patient Orientation: Person, Place and Time Level of Consciousness: Awake, Appropriate and Alert Patient Behavior: Appropriate and Cooperative Mood Description: Anxious and Sad Affect Description: Anxious and Sad Patient Cognition Impaired: No Ability to Follow Directions: Excellent Speech Pattern: Clear, Appropriate and Coherent Memory Description: Intact Hallucinations: None Delusions: Not Present Thought Process: Intact and Goal Oriented Thought Content: positive for Intact and positive for Goal Oriented Judgement: Good Assessment and Plan Assessment & Plan (1) MDD (major depressive disorder), recurrent episode: Status: Acute Qualifiers: Major depression episode severity: moderate Qualified Code(s): F33.1 - Major depressive disorder, recurrent, moderate Code(s): F33.9 - Major depressive disorder, recurrent, unspecified (2) INGRID (generalized anxiety disorder): Status: Acute Code(s): F41.1 - Generalized anxiety disorder Plan pt has been tired on 2 SSRIs, 1 SNRI, wellbutrin, and lithium. Discussed alternatives including sga and lamictal as well as a trial of another antidepressant; again discussed TMS as option plan is to start trazodone 50mg at bedtime for sleep- take 1/2 to 1 tab hs prn one week later start lamictal titation Medications: New lamotrigine (Lamictal) 25 mg orally Take 1/2 tab daily x 14 days then take 1 tab daily x 14 days then 2 tabs daily x 14 days; 30 days 60 tabs 0RF Counseling and coordination of Care Pt. Self Management counseling: Maintenance-social rhythm, Mod caffeine/ETOH intake and Sleep hygiene Medication management counseling: Effectiveness, Side effects, Dosing range, Duration, Drug interaction and Adherence Diagnosis and Prognosis Counseling: Accuracy of diagnosis, Prognosis over time, Impact of diagnosis on life functions, Impact of family relationship, Problematic behaviors secondary to diagnosis and Adequacy of current interventions Details: I spent 40 minutes reviewing the record, seeing the patient and documenting in the medical record. Counseling provided to the patient/caregiver as outlined below. Addressed patient/caregiver concerns regarding current medication regime including effective adherence. Addressed patient/caregiver concerns regarding diagnosis and prognosis including accuracy of diagnosis, prognosis over time, impact of diagnosis. Addressed patient/caregiver concerns regarding impact of recent stressors. [facility] Medical History (Updated 07/16/24 @ 14:58 by PINA Gandhi) Neuropathy Swelling Arthritis Thyroid disease GERD (gastroesophageal reflux disease) IBS (irritable bowel syndrome) Surgical History (Updated 06/02/24 @ 09:32 by Kary Mandel CMA) H/O bursectomy History of Jeanna-en-Y gastric bypass Family History (Updated 06/02/24 @ 09:25 by Kary Mandel CMA) Mother HTN (hypertension) Hypercholesteremia Diabetes Breast cancer Depression Maternal Grandmother Hypercholesteremia Paternal Grandfather COPD (chronic obstructive pulmonary disease) Father Alcoholism Social History Housing: House Patient Tobacco Use Status: Never used Tobacco e-Cigarette/Vaping Use: Never Used Second Hand Smoke Exposure: No service: No Current occupational status: employed 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
== END 2024-11-10 16:38 | disposition home or self-care (01) ==
LOC: HO.HOP 16:06
PROVIDERS: PCP Nurse Practitioner Family; Visit Provider Clinical Nurse Specialist Psychiatric/Mental Health
DX: F33.1 Major depressive disorder, recurrent, moderate (principal); F41.1 Generalized anxiety disorder
CPT/HCPCS: 99214

== ENCOUNTER → 2024-11-10 16:06 | Outpatient (BNVA) | payer BC, SELFPAY | PROVIDERS: PCP Nurse Practitioner Family; Visit Provider Clinical Nurse Specialist Psychiatric/Mental Health ==

== ENCOUNTER 2025-01-01 13:42 | Outpatient (AMB) | payer BC, SELFPAY ==
--- NOTE | 2025-01-01 13:01 | MHC.OFFVISPS ---
Intake Intake Visit Reasons: f/u consultation Allergies No Known Allergies [No Known Allergies*] Allergy (Verified 07/16/24 12:00) Medication List - Last Reconciled 01/01/25 by Otilia Wyatt APRN bupropion HCl XL 300 mg PO DAILY cholecalciferol (vitamin D3) 50 mcg PO DAILY 90 days citalopram 20 mg PO DAILY ferrous sulfate 325 mg PO DAILY 90 days lamotrigine (Lamictal) 50 mg (2 x 25 mg) PO BID lansoprazole 30 mg PO DAILY levothyroxine 125 mcg PO DAILY mecobalamin (vitamin B12) 1,000 mcg PO DAILY 90 days trazodone 50 mg PO BEDTIME PRN HPI- Psychiatric Chief Complaint: f/u consultation HPI Narrative: pt taking lamictal 50 mg daily x 3 days; no side effects noted; pt reports improved concentration and energy; still irritable at times in response primarily to increased demands at work; pt has been off wellbutrin accidentally for 14 days- forgot to add to pill box. has not noticedd any significant change from being off it. pt is taking celexa 20 mg daily x 4 days a week and 10 mg daily x 3 days a week and tolerating the decrease. pt sleeping much better with trazodone. no side effects from trazodone noted; no medical changes. 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 failed trials of lexapro (tremors) effexor (not effective) No IPLOC. Subjective Subjective Subjective Medication Compliance: Yes Side effects from medications: No Review of Systems Medical Review of Systems: unchanged Mental Status Exam Mental Status Exam Patient Appearance: Well Grooomed Patient Orientation: Person, Place, Time and Situation Level of Consciousness: Awake Patient Behavior: Appropriate and Cooperative Mood Description: Cheerful Affect Description: Cheerful Patient Cognition Impaired: No Ability to Follow Directions: Good Speech Pattern: Clear Memory Description: Intact Hallucinations: None Delusions: Not Present Thought Process: Intact and Goal Oriented Thought Content: positive for Intact and positive for Goal Oriented Judgement: Good Telehealth Telehealth Telehealth Platform: Other (please specify) ([email or web address]) Location of provider rendering services: practice address Location of patient: address on file Patient Identification confirmed using: Name, : Yes Telehealth method: video Patient verbally consented to treatment: Yes Patient verbally consented to billing insurance company: Yes Patient informed of any privacy concerns related to visit: Yes Minutes spent on Phone/Video with Pt.: 22 Assessment and Plan Assessment & Plan (1) MDD (major depressive disorder), recurrent episode: Status: Acute Qualifiers: Major depression episode severity: moderate Qualified Code(s): F33.1 - Major depressive disorder, recurrent, moderate Code(s): F33.9 - Major depressive disorder, recurrent, unspecified (2) INGRID (generalized anxiety disorder): Status: Acute Code(s): F41.1 - Generalized anxiety disorder Plan continue lamictal 25mg BID (has a 90 day supply) continue to hold wellbutrin for now continue celexa 20 mg daily x 4 days a week and 10mg daily x 3 days a week follow up in 4 weeks Medications: Refilled citalopram 20 mg PO DAILY 90 tabs 0RF Counseling and coordination of Care Pt. Self Management counseling: Maintenance-social rhythm, Mod caffeine/ETOH intake, Sleep hygiene, Behavior activation, General coping skills and Problem solving Medication management counseling: Effectiveness, Side effects, Dosing range, Duration, Drug interaction and Adherence Diagnosis and Prognosis Counseling: Accuracy of diagnosis, Prognosis over time, Impact of diagnosis on life functions, Impact of family relationship, Problematic behaviors secondary to diagnosis and Adequacy of current interventions Details: I spent 35 minutes reviewing the record, seeing the patient and documenting in the medical record. Counseling provided to the patient/caregiver as outlined below. Addressed patient/caregiver concerns regarding current medication regime including effective adherence. Addressed patient/caregiver concerns regarding diagnosis and prognosis including accuracy of diagnosis, prognosis over time, impact of diagnosis. Addressed patient/caregiver concerns regarding impact of recent stressors. [facility] Medical History (Updated 07/16/24 @ 14:58 [facility] Neuropathy Swelling Arthritis Thyroid disease GERD (gastroesophageal reflux disease) IBS (irritable bowel syndrome) Surgical History (Updated 06/02/24 @ 09:32 by Kary Mandel CMA) H/O bursectomy History of Jeanna-en-Y gastric bypass Family History (Updated 06/02/24 @ 09:25 by Kary Mandel CMA) Mother HTN (hypertension) Hypercholesteremia Diabetes Breast cancer Depression Maternal Grandmother Hypercholesteremia Paternal Grandfather COPD (chronic obstructive pulmonary disease) Father Alcoholism Social History Housing: House Patient Tobacco Use Status: Never used Tobacco e-Cigarette/Vaping Use: Never Used Second Hand Smoke Exposure: No service: No Current occupational status: employed 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
== END 2025-01-01 13:43 | disposition home or self-care (01) ==
LOC: HO.HOP 13:42
PROVIDERS: PCP Nurse Practitioner Family; Visit Provider Clinical Nurse Specialist Psychiatric/Mental Health
DX: F33.1 Major depressive disorder, recurrent, moderate (principal); F41.1 Generalized anxiety disorder
CPT/HCPCS: 99214

== ENCOUNTER → 2025-01-01 13:42 | Outpatient (BNVA) | payer BC, SELFPAY | PROVIDERS: PCP Nurse Practitioner Family; Visit Provider Clinical Nurse Specialist Psychiatric/Mental Health ==

== ENCOUNTER 2025-01-29 13:31 | Outpatient (AMB) | payer BC, SELFPAY ==
--- NOTE | 2025-01-29 13:11 | A.OFFPSYCH_ITS ---
Intake Intake Visit Reasons: f/u consultation Route Process Administrator Required: No Allergies No Known Allergies [No Known Allergies*] Allergy (Verified 07/16/24 12:00) Medication List - Last Reconciled 01/29/25 by Otilia Wyatt APRN cholecalciferol (vitamin D3) 50 mcg PO DAILY 90 days citalopram 20 mg PO DAILY ferrous sulfate 325 mg PO DAILY 90 days lamotrigine (Lamictal) 50 mg (2 x 25 mg) PO BID lansoprazole 30 mg PO DAILY levothyroxine 125 mcg PO DAILY mecobalamin (vitamin B12) 1,000 mcg PO DAILY 90 days trazodone 50 mg PO BEDTIME PRN HPI- Psychiatric Chief Complaint: f/u consultation HPI Narrative: follow up re: mood and anxiety pt improved in terms of anxiety and irritability deppression with low motivation and low enjoyment continues some trouble with concentration and focus no side effects from meds including lamictal- no rash PHQ9=14 GAD7=7 no SI or HI Past Psychiatric History: 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 failed trials of lexapro (tremors) effexor (not effective) No IPLOC. Subjective Subjective Subjective Medication Compliance: Yes Side effects from medications: No Review of Systems Medical Review of Systems: unchanged Mental Status Exam Mental Status Exam Patient Orientation: Person, Place, Time and Situation Level of Consciousness: Awake and Appropriate Patient Behavior: Appropriate Mood Description: Anxious (mild) Affect Description: Appropriate Patient Cognition Impaired: No Ability to Follow Directions: Good Speech Pattern: Clear Memory Description: Intact Hallucinations: None Delusions: Not Present Thought Process: Intact and Goal Oriented Thought Content: positive for Intact and positive for Goal Oriented Judgement: Good Telehealth Telehealth Telehealth Platform: Other (please specify) ([email or web address]) Location of provider rendering services: practice address Location of patient: address on file Patient Identification confirmed using: Name, : Yes Telehealth method: video Patient verbally consented to treatment: Yes Patient verbally consented to billing insurance company: Yes Patient informed of any privacy concerns related to visit: Yes Minutes spent on Phone/Video with Pt.: 20 Assessment and Plan Assessment & Plan (1) MDD (major depressive disorder), recurrent episode: Status: Acute Qualifiers: Major depression episode severity: moderate Qualified Code(s): F33.1 - Major depressive disorder, recurrent, moderate Code(s): F33.9 - Major depressive disorder, recurrent, unspecified (2) INGRID (generalized anxiety disorder): Status: Acute Code(s): F41.1 - Generalized anxiety disorder Plan Plan: Increase lamictal to 75mg in am daily start wellbutrin XL 150mg qam reduce celexa to 10mg daily (1/2 tab of 20mg pills) trazodone 25mg at bedtime melatonin 1mg at bedtime Medications: New bupropion HCl XL (Wellbutrin XL) 150 mg PO QAM 30 tabs 1RF Changed From citalopram 20 mg PO DAILY 90 tabs 0RF To citalopram 10 mg (1/2 x 20 mg) PO DAILY 90 tabs 0RF From lamotrigine 50 mg (2 x 25 mg) PO BID 180 tabs 0RF To lamotrigine (Lamictal) 75 mg (3 x 25 mg) PO DAILY 90 tabs 1RF From trazodone 50 mg PO BEDTIME PRN 30 tabs 2RF sleep To trazodone 25 mg (1/2 x 50 mg) PO BEDTIME PRN 45 tabs 2RF sleep Counseling and coordination of Care Pt. Self Management counseling: Mod caffeine/ETOH intake, Sleep hygiene and Problem solving Medication management counseling: Effectiveness, Side effects, Dosing range, Duration, Drug interaction and Adherence Diagnosis and Prognosis Counseling: Accuracy of diagnosis, Prognosis over time, Impact of diagnosis on life functions, Impact of family relationship and Problematic behaviors secondary to diagnosis Details: I spent 35 minutes reviewing the record, seeing the patient and documenting in the medical record. Counseling provided to the patient/caregiver as outlined below. Addressed patient/caregiver concerns regarding current medication regime including effective adherence. Addressed patient/caregiver concerns regarding diagnosis and prognosis including accuracy of diagnosis, prognosis over time, impact of diagnosis. Addressed patient/caregiver concerns regarding impact of recent stressors. [facility] Medical History (Updated 07/16/24 @ 14:58 by PINA Gandhi) Neuropathy Swelling Arthritis Thyroid disease GERD (gastroesophageal reflux disease) IBS (irritable bowel syndrome) Surgical History (Updated 06/02/24 @ 09:32 by Kary Mandel CMA) H/O bursectomy History of Jeanna-en-Y gastric bypass Family History (Updated 06/02/24 @ 09:25 by Kary Mandel CMA) Mother HTN (hypertension) Hypercholesteremia Diabetes Breast cancer Depression Maternal Grandmother Hypercholesteremia Paternal Grandfather COPD (chronic obstructive pulmonary disease) Father Alcoholism Social History Housing: House Patient Tobacco Use Status: Never used Tobacco e-Cigarette/Vaping Use: Never Used Second Hand Smoke Exposure: No service: No Current occupational status: employed 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
== END 2025-01-29 13:34 | disposition home or self-care (01) ==
LOC: HO.HOP 13:31
PROVIDERS: PCP Nurse Practitioner Family; Visit Provider Clinical Nurse Specialist Psychiatric/Mental Health
DX: F33.1 Major depressive disorder, recurrent, moderate (principal); F41.1 Generalized anxiety disorder
CPT/HCPCS: 99213

== ENCOUNTER 2025-03-02 14:42 | Outpatient (AMB) | payer BC, SELFPAY ==
--- NOTE | 2025-03-02 14:17 | MHC.OFFVISPS ---
Intake Intake Visit Reasons: f/u consultation [employer] Required: No Allergies No Known Allergies [No Known Allergies*] Allergy (Verified 07/16/24 12:00) Medication List - Last Reconciled 03/02/25 by Otilia Wyatt APRN bupropion HCl XL 150 mg PO QAM cholecalciferol (vitamin D3) 50 mcg PO DAILY 90 days citalopram 10 mg (1/2 x 20 mg) PO DAILY ferrous sulfate 325 mg PO DAILY 90 days lamotrigine (Lamictal) 75 mg (3 x 25 mg) PO DAILY lansoprazole 30 mg PO DAILY levothyroxine 125 mcg PO DAILY mecobalamin (vitamin B12) 1,000 mcg PO DAILY 90 days trazodone 25 mg (1/2 x 50 mg) PO BEDTIME PRN HPI- Psychiatric Chief Complaint: f/u consultation HPI Narrative: pr seen via telehealth for follow up depression and anxiety pt reports feeling much improved depression improved with more enjoymemt., motivation, more engagement with others redued nxiety and reduced irritability sleep is still variable with early am waking no SI or HI Past Psychiatric History: 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 failed trials of lexapro (tremors) effexor (not effective) No IPLOC. Subjective Subjective Subjective Medication Compliance: Yes Side effects from medications: No Review of Systems Medical Review of Systems: unchanged Mental Status Exam Mental Status Exam Patient Appearance: Well Grooomed and Appropriate Patient Orientation: Person, Place, Time and Situation Level of Consciousness: Awake Patient Behavior: Appropriate Mood Description: Cheerful Affect Description: Cheerful Patient Cognition Impaired: Yes Ability to Follow Directions: Good Speech Pattern: Clear Memory Description: Intact Hallucinations: None Delusions: Not Present Thought Process: Intact Thought Content: positive for Intact Judgement: Good Telehealth Telehealth Telehealth Platform: Other (please specify) ([email or web address]) Location of provider rendering services: practice address Location of patient: address on file Patient Identification confirmed using: Name, : Yes Telehealth method: video Patient verbally consented to treatment: Yes Patient verbally consented to billing insurance company: Yes Patient informed of any privacy concerns related to visit: Yes Minutes spent on Phone/Video with Pt.: 20 Assessment and Plan Assessment & Plan (1) MDD (major depressive disorder), recurrent episode: Status: Acute Qualifiers: Major depression episode severity: moderate Qualified Code(s): F33.1 - Major depressive disorder, recurrent, moderate Code(s): F33.9 - Major depressive disorder, recurrent, unspecified (2) INGRID (generalized anxiety disorder): Status: Acute Code(s): F41.1 - Generalized anxiety disorder Medications: Refilled trazodone 25 mg (1/2 x 50 mg) PO BEDTIME PRN 45 tabs 2RF sleep lamotrigine (Lamictal) 75 mg (3 x 25 mg) PO DAILY 90 tabs 1RF bupropion HCl XL 150 mg PO QAM 90 tabs 1RF citalopram 10 mg (1/2 x 20 mg) PO DAILY 90 tabs 0RF Orders: Orders Comprehensive Savage. 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 representative (current) drug therapy TSH reflex Free T4 Today F33.1 - Major depressive disorder, recurrent, moderate, Z79.899 - Other termite control service representative (current) drug therapy Vitamin D 25-OH Total Today E55.9 - Vitamin D deficiency, unspecified Vitamin B12 and Folate Today F33.1 - Major depressive disorder, recurrent, moderate IRON PROFILE Today E61.1 - Iron deficiency, F33.1 - Major depressive disorder, recurrent, moderate Lamotrigine Lamictal Today F33.1 - Major depressive disorder, recurrent, moderate, Z79.899 - Other termite control service representative (current) drug therapy Counseling and coordination of Care Pt. Self Management counseling: Maintenance-social rhythm, Mod caffeine/ETOH intake and Problem solving Medication management counseling: Effectiveness, Side effects, Dosing range, Duration, Drug interaction and Adherence Diagnosis and Prognosis Counseling: Accuracy of diagnosis, Prognosis over time, Impact of diagnosis on life functions, Impact of family relationship, Problematic behaviors secondary to diagnosis and Adequacy of current interventions Details: I spent 35 minutes reviewing the record, seeing the patient and documenting in the medical record. Counseling provided to the patient/caregiver as outlined below. Addressed patient/caregiver concerns regarding current medication regime including effective adherence. Addressed patient/caregiver concerns regarding diagnosis and prognosis including accuracy of diagnosis, prognosis over time, impact of diagnosis. Addressed patient/caregiver concerns regarding impact of recent stressors. [facility] Medical History (Updated 03/02/25 @ 14:59 by Otilia Wyatt APRN) Neuropathy Swelling Arthritis Thyroid disease GERD (gastroesophageal reflux disease) IBS (irritable bowel syndrome) Surgical History (Updated 06/02/24 @ 09:32 by Kary Mandel CMA) H/O bursectomy History of Jeanna-en-Y gastric bypass Family History (Updated 06/02/24 @ 09:25 by Kary Mandel CMA) Mother HTN (hypertension) Hypercholesteremia Diabetes Breast cancer Depression Maternal Grandmother Hypercholesteremia Paternal Grandfather COPD (chronic obstructive pulmonary disease) Father Alcoholism Social History Housing: House Patient Tobacco Use Status: Never used Tobacco e-Cigarette/Vaping Use: Never Used Second Hand Smoke Exposure: No service: No Current occupational status: employed 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
== END 2025-03-02 14:42 | disposition home or self-care (01) ==
LOC: HO.HOP 14:42
PROVIDERS: PCP Nurse Practitioner Family; Visit Provider Clinical Nurse Specialist Psychiatric/Mental Health
DX: F33.1 Major depressive disorder, recurrent, moderate (principal); F41.1 Generalized anxiety disorder
CPT/HCPCS: 99213

== ENCOUNTER → 2025-03-02 14:42 | Outpatient (BNVA) | payer BC, SELFPAY | PROVIDERS: PCP Nurse Practitioner Family; Visit Provider Clinical Nurse Specialist Psychiatric/Mental Health | DX: Z13.89 Encounter for screening for other disorder (principal) ==

== ENCOUNTER 2025-03-21 08:45 | Outpatient (REF) | payer BC, SELFPAY ==
[2025-03-21 09:13] LABS: Estimated Average Glucose 114 mg/dL; Hemoglobin A1C 134.6032 umol/L; Hemoglobin A1c % 5.6 % (<6.0); Total Hemoglobin (HGBA1C) 3560.4116 umol/L
[2025-03-21 09:43] LABS: Alanine Aminotransferase 15 U/L (0-31); Alkaline Phosphatase 108 U/L (39-117); Anion Gap 11 (12-20); Aspartate Amino Transferase 15 U/L (5-31); Bilirubin Total 0.5 mg/dL (0.0-1.0); Blood Urea Nitrogen 10 mg/dL (9-16); Calcium 9.2 mg/dL (8.4-10.2); Carbon Dioxide 27 mmol/L (22-29); Chloride 109 mmol/L (96-108); Cholesterol 215 mg/dL (<200); Estimated Glomerular Filt Rate > 60; Glucose Fasting 100 mg/dL (60-99); HDL Cholesterol 90 mg/dL (>40); Iron 93 mcg/dL (30-160); LDL Cholesterol Calculated 110 mg/dL (<100); Percent Iron Saturation 30 % (15-50); Potassium 3.8 mmol/L (3.3-5.1); Sodium 143 mmol/L (135-145); Total Iron Binding Capacity 314 mcg/dL (228-428); Total Protein 6.7 g/dL (6.5-8.0); Triglycerides 78 mg/dL (<150); Unsaturated Iron Binding 221 ug/dL
[2025-03-21 09:59] LABS: TSH reflex Free T4 4.26 uIU/mL (0.32-4.0); Vitamin D 25-OH Total 27.2 ng/mL (>30)
[2025-03-21 10:06] LABS: Folate 12.4 ng/mL (> or = 4.0); Vitamin B12 585 pg/mL (200-900)
[2025-03-21 10:30] LABS: Free T4 (Free Thyroxine) 1.12 ng/dL (0.71-1.85)
[2025-03-25 19:39] LABS: Lamotrigine Lamictal 1.5 mcg/mL (2.5-15.0)
== END 2025-03-21 08:46 | disposition home or self-care (01) ==
LOC: HO.LAB 08:45
PROVIDERS: Absent Provider Clinical Nurse Specialist Psychiatric/Mental Health; PCP Nurse Practitioner Family; Visit Provider Nurse Practitioner Family
DX: F33.1 Major depressive disorder, recurrent, moderate (principal); E55.9 Vitamin D deficiency, unspecified; Z98.84 Bariatric surgery status; E03.9 Hypothyroidism, unspecified; Z79.899 Other long term (current) drug therapy; D50.9 Iron deficiency anemia, unspecified
CPT/HCPCS: 36415; 80053; 80061; 80175; 82306; 82607; 82746; 83036; 83540; 84439; 84443

== ENCOUNTER 2025-04-27 08:23 | Outpatient (AMB) | payer BC, SELFPAY ==
--- NOTE | 2025-04-27 08:25 | A.OFFPC_ITS ---
Vital Signs 3 04/27/25 08:32 Height 5 ft 7 in Weight 287 lb BMI 44.9 BP 122/70 Blood Pressure Location Rt brachial Position Sitting Respiration 12 Pulse 66 Pulse Source Pulse Oximeter Temp 97.5 F Temp Source Oral Pulse Oximetry (%) 97 Oxygen Delivery Method Room Air Intake Visit Reasons: F/U Meds and labs Intake Note: Follow up review meds. 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: No Allergies No Known Allergies (No Known Allergies*) Allergy (Verified 04/27/25 08:37) Medication List - Last Reconciled 04/27/25 by Tisha Forrester, ENVIRONMENTAL SERVICES WORKER- bupropion HCl XL 150 mg PO QAM cholecalciferol (vitamin D3) 50 mcg PO DAILY 90 days citalopram 10 mg (1/2 x 20 mg) PO DAILY ferrous sulfate 325 mg PO DAILY 90 days lamotrigine (Lamictal) 75 mg (3 x 25 mg) PO DAILY lansoprazole 30 mg PO DAILY levothyroxine 125 mcg PO DAILY mecobalamin (vitamin B12) 1,000 mcg PO DAILY 90 days trazodone 25 mg (1/2 x 50 mg) PO BEDTIME PRN Tobacco use date assessed: 04/27/25 Fall risk assessment: No Falls in past year Last assessed Fall Risk: 04/27/25 Dental Screening Dental Screen Date: 04/27/25 Did you have a dental visit in the last 12 months?: Yes Did you have a dental problem in the last 6 months where you did not have access to dental care?: No Was dental information given to patient?: Patient has dentist HPI HPI Comments 2 History of Present Illness0 Details 64-year-old female with obesity, hypothy roid, chronic GERD, IBS, MDD, INGRID, uterine cancer s/p ALINA, macular degeneration [wet in right, dry in the left], diverticulosis, iron def without anemia requiring IV iron in the past Surgical hx: reun-y gastric bypass 2018 s/p ALINA 5 years ago d/t Stage 1 uterine cancer 2019 bunionectomy tonsillectomy 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 Health Maintenance: ?Colon 7 years ago, normal, 10 year recall. Will refer to GI in the future about 1 year before next screen colon due ?Mammo Nov 2023, reports normal. [facility]. Has standing order. ?DEXA never. Declined ?PAP > [facility] WATER QUALITY ANALYST referral [facility]. Cleared for Machine Printer Hose Onc f/u. ?Tdap reports this was 2019, will get Flu at work along w/ COVID booster Has not had Shingles or PCV Specialists: WATER QUALITY ANALYST - referred to [facility], told they are not taking new patients. Working on est care, will let me know if i need to send updated referral Retinal Specialist Dr Justin godoy 1 week ago, has not required injections in 1 year. Both eyes are dry. Optho Dr Elenita Weiss - Eufemia Wyatt Here today for routine fu: New c/o Black toe nail L great toe 2 months No trauma Denies fever, chills, redness, drainage Edema BLE improved but cont. Denies sob, chest pain Iron was taking 3xweek now taking QD Levothyroxine was not taking QD GERD controlled on lansorprazole 15mg QD could not tolerate any further taper w/o return of sx Mood well controlled on current meds - Eufemia Wyatt Vit D remains low on Vit d3 5k/day Labs 03/2025 reviewed Vit d low; Iron stable, TSH >4 Exam: Awake alert NAD RRR, 2/6 systolic murmur LS CTAB Trace to +1 edema BLE + PP bilat See pic of L great toe nail below Plan: Derm referral for L great toe nail Echo for murmur and edema Add Ca+ to vit d supplement to improve Ok to reduce Iron to 3x/week given last labs 03/2025 Keep levo the same as was not taking QD when TSH > 4 Cont all meds as directed RTO Sept CPE Sooner PRN Total time spent caring for the patient today was 40 minutes. This includes time spent before the visit reviewing the chart, time spent during the visit, and time spent after the visit on documentation, reviewing laboratory results, diagnostic imaging, medications, performing a medically necessary evaluation, counseling on diagnoses, care coordination, ordering appropriate tests, ordering appropriate medications, review of tests performed by other providers, reporting test results with the patient, communication with other healthcare providers. [facility] Medical History (Updated 04/27/25 @ 08:54 by Tisha Forrester, [facility]) Neuropathy Swelling Arthritis Thyroid disease GERD (gastroesophageal reflux disease) IBS (irritable bowel syndrome) Surgical History (Updated 06/02/24 @ 09:32 by Kary Mandel CMA) H/O bursectomy History of Jeanna-en-Y gastric bypass Family History (Updated 06/02/24 @ 09:25 by Kary Mandel CMA) Mother HTN (hypertension) Hypercholesteremia Diabetes Breast cancer Depression Maternal Grandmother Hypercholesteremia Paternal Grandfather COPD (chronic obstructive pulmonary disease) Father Alcoholism Social History Housing: House Patient Tobacco Use Status: Never used Tobacco e-Cigarette/Vaping Use: Never Used Second Hand Smoke Exposure: No service: No Current occupational status: employed 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 1. Little interest or pleasure in doing things: not at all 2. Feeling down, depressed, or hopeless: not at all 3. Trouble falling or staying asleep, or sleeping too much: several days 4. Feeling tired or having little energy: several days 5. Poor appetite or overeating: not at all 6. Feeling bad about yourself - or that you are a failure or have let yourself or your family down: not at all 7. Trouble concentrating on things, such as reading the newspaper or watching television: not at all 8. Moving or speaking so slowly that other people could have noticed. Or the opposite - being so fidgety or restless that you have been moving around a lot more than usual: not at all 9. Thoughts that you would be better off or of hurting yourself in some way: not at all Total score: 2 Depression Screening Interpretation: Negative Depression Screening Done: Yes 54934 - PHQ-9 Billing: Yes Source: Developed by Drs. Audie Babcock, Faustina Arias, Vinny Hauser and colleagues, with an educational guillermo from [email or web address]. Thrive Questionnaire Date Thrive assessed: 04/27/25 I am a: Patient What is your living situation today?: I have a steady place to live Within the past 12 months, did the food you bought not last and you didn't have the money to get more?: Never true Within the past 12 months, did you worry whether your food would run out before you got money to buy more?: Never true Do you have trouble paying for medicines?: No Do you have trouble getting transportation to medical appointments?: No Do you have trouble paying your heating and electricity bill?: No Do you have trouble taking care of your child, family member or friend?: No Do you have trouble with day-to-day activities such as bathing, preparing meals, shopping, managing finances, etc.?: No Are you currently unemployed and looking for a job?: No Are you interested in more education?: No Please select the resources that you would like help with: None Currently or been in a relationship where the following occur: No concerns reported THRIVE Score: 0 AUDIT C Alcohol Use Questionnaire (AUDIT-C) 2. How many drinks containing alcohol do you have on a typical day when you are drinking?: 1 or 2 Total Score: 0 Score Reviewed/Action Taken: Yes INGRID-7 AMB Questionnaire INGRID-7 Date INGRID - 7 assessed: 04/27/25 Feeling nervous, anxious, or on edge: 0 = Not at all Not being able to stop or control worryin = Not at all Worrying too much about different things: 0 = Not at all Trouble relaxin = Not at all Being so restless that it is hard to sit still: 0 = Not at all Becoming easily annoyed or irritable: 0 = Not at all Feeling afraid as if something awful might happen: 0 = Not at all Total INGRID-7 score (0-4 normal; 5-9 mild; 10-14 moderate; 15-21 severe): 0 Source: Developed by Drs. Audie Babcock, Faustina Arias, Vinny Hauser and colleagues, with an educational guillermo from [email or web address]. INGRID-7 Assessment Billing INGRID-7 Assessment Tool: INGRID-7 Assessment 96143 Physical exam (Primary Care) Vital Signs: Last Vital Signs Temp 97.5 F 04/27/25 08:32 Pulse 66 04/27/25 08:32 Resp 12 04/27/25 08:32 BP 122/70 04/27/25 08:32 Pulse Ox 97 04/27/25 08:32 Oxygen Delivery Method Room Air 04/27/25 08:32 BMI result Body Mass Index 44.9 BMI Assessment/Plan discussion: High BMI High, discussed plan: lifestyle Tobacco/Smoking Status: Tobacco use Status Tobacco use date assessed 04/27/25 04/27/25 08:28 Patient Tobacco Use Status Never used Tobacco 04/27/25 08:28 e-Cigarette/Vaping Use Never Used 04/27/25 08:28 PHQ-9: PHQ-9 Score PHQ-9: Total score 2 04/27/25 08:28 Depression Screening Interpretation: Negative Thrive Assessment: Date of Thrive Assessment Date Thrive assessed 04/27/25 04/27/25 08:28 Currently or been in a relationship where the following occur: No concerns reported Coding Level of Care Code Est Pt Level 5 (07899) Complex EM visit Add On G2211 Diagnoses PVD (peripheral vascular disease) I73.9 Morbid obesity with BMI of 45.0-49.9, adult E66.01; Z68.42 Heart murmur R01.1 Swelling of lower leg M79.89 Nail abnormality L60.9 INGRID (generalized anxiety disorder) F41.1 Moderate episode of recurrent major depressive disorder F33.1 Major depression episode severity: moderate Acquired hypothyroidism E03.9 Hypothyroidism type: acquired Vitamin D deficiency E55.9 GERD without esophagitis K21.9 Iron deficiency E61.1 Additional Codes INGRID-7 Assessment Billing - INGRID-7 Assessment Tool: INGRID-7 Assessment 05586 ([id number]) PHQ-9 - 31548 - PHQ-9 Billing: Yes ([id number]) Assessment & Plan Assessment & Plan (1) PVD (peripheral vascular disease): Code(s): I73.9 - Peripheral vascular disease, unspecified Category: Medical (2) Morbid obesity with BMI of 45.0-49.9, adult: Comment: bmi > 45 Code(s): E66.01 - Morbid (severe) obesity due to excess calories; Z68.42 - Body mass index [BMI] 45.0-49.9, adult Category: Medical (3) Heart murmur: Code(s): R01.1 - Cardiac murmur, unspecified Category: Medical (4) Swelling of lower leg: Code(s): M79.89 - Other specified soft tissue disorders Category: Medical (5) Nail abnormality: Code(s): L60.9 - Nail disorder, unspecified Category: Medical (6) INGRID (generalized anxiety disorder): Code(s): F41.1 - Generalized anxiety disorder Category: Medical (7) MDD (major depressive disorder), recurrent episode: Code(s): F33.9 - Major depressive disorder, recurrent, unspecified Category: Medical Qualifiers: Major depression episode severity: moderate Qualified Code(s): F33.1 - Major depressive disorder, recurrent, moderate (8) Hypothyroid: Code(s): E03.9 - Hypothyroidism, unspecified Category: Medical Qualifiers: Hypothyroidism type: acquired Qualified Code(s): E03.9 - Hypothyroidism, unspecified (9) Vitamin D deficiency: Code(s): E55.9 - Vitamin D deficiency, unspecified Category: Medical (10) GERD without esophagitis: Code(s): K21.9 - Gastro-esophageal reflux disease without esophagitis Category: Medical (11) Iron deficiency: Code(s): E61.1 - Iron deficiency Category: Medical Plan . Orders: Orders 2 CA echo transthoracic complete Today M79.89 - Other specified soft tissue disorders, R01.1 - Cardiac murmur, unspecified Referrals 2 Dermatology Referral L60.9 - Nail disorder, unspecified Medications: New 2 cholecalciferol (vitamin D3) 125 mcg PO DAILY 90 caps 0RF Refilled 2 levothyroxine 125 mcg PO DAILY 90 tabs 1RF Discontinued 2 cholecalciferol (vitamin D3) Discontinued Reason: Patient Completed Course 50 mcg PO DAILY 90 days 90 caps 2RF
[2025-04-27 08:32] VITALS: BP 122/70; PULSE 66; RESP 12; TEMP 36.4; O2SAT 97; BMI 44.9
== END 2025-04-27 09:03 | disposition home or self-care (01) ==
LOC: HO.HMCFM 08:24
PROVIDERS: PCP Nurse Practitioner Family; Visit Provider Nurse Practitioner Family
DX: I73.9 Peripheral vascular disease, unspecified (principal); E66.01 Morbid (severe) obesity due to excess calories; F33.1 Major depressive disorder, recurrent, moderate; Z68.41 Body mass index [BMI] 40.0-44.9, adult; R01.1 Cardiac murmur, unspecified; M79.89 Other specified soft tissue disorders; L60.9 Nail disorder, unspecified; F41.1 Generalized anxiety disorder; E03.9 Hypothyroidism, unspecified; E55.9 Vitamin D deficiency, unspecified; K21.9 Gastro-esophageal reflux disease without esophagitis; E61.1 Iron deficiency

== ENCOUNTER → 2025-04-27 08:23 | Outpatient (BNVA) | payer BC, SELFPAY | PROVIDERS: PCP Nurse Practitioner Family; Visit Provider Nurse Practitioner Family | DX: I73.9 Peripheral vascular disease, unspecified (principal); E66.01 Morbid (severe) obesity due to excess calories; Z68.42 Body mass index [BMI] 45.0-49.9, adult; R01.1 Cardiac murmur, unspecified; M79.89 Other specified soft tissue disorders; L60.9 Nail disorder, unspecified; F41.1 Generalized anxiety disorder; F33.1 Major depressive disorder, recurrent, moderate; E03.9 Hypothyroidism, unspecified; E55.9 Vitamin D deficiency, unspecified; E61.1 Iron deficiency; K21.9 Gastro-esophageal reflux disease without esophagitis | CPT/HCPCS: 96127 ==

== ENCOUNTER 2025-05-26 16:11 | Outpatient (AMB) | payer BC, SELFPAY ==
--- OUTSIDE RECORDS SUMMARY | 2025-05-26 16:41 | XMS_ITS | Clinical Summary ---
Author Organization [facility] Address [address] [place] [id number] Phone Care Team Providers Care Investigative Assistant Name Role Phone Mynor Sosa MD Primary Care Provider [phone] Allergies No known active allergies Medications buPROPion (WELLBUTRIN XL) 300 MG ER 24 hr tablet 11 9 Active calcium citrate-vitamin D3 500 mg calcium -400 unit Chew Take 1 tablet by mouth. 7 Active citalopram (CELEXA) 20 MG tablet Take 20 mg by mouth. Active cyanocobalamin, vitamin B-12, [address] 500 mcg under the tongue. 7 Active glucosamine davidson 2KCl-chondroit 500-400 mg Tab Take 1 tablet by mouth. Active iron, carbonyl 15 mg Chew Take by mouth. Active levothyroxine (SYNTHROID, LEVOTHROID) 150 MCG tablet Take 125 mcg by mouth. Active lansoprazole (PREVACID) 30 MG capsule 3 9 Active pedi multivitamin no.79-iron (FLINTSTONES WITH IRON) 18 mg iron Chew Take 1 tablet by mouth. 7 Active cholecalciferol (VITAMIN D3) 5,000 unit tablet Take 1,000 Units by mouth daily. Active docusate sodium (COLACE) 100 MG capsule Take 100 mg by mouth 2 (two) times a day. Active Active Problems Problem Noted Date Diagnosed Date Class 3 severe obesity due t o excess calories without serious comorbidity with body mass index (BMI) of 40.0 to 44.9 in adult 08/05/2019 S/P gastric bypass 12/14/2017 Hypothyroid 05/01/2017 Immunizations Immunization Administration Dates Next Due Influenza, Unspecified Formulation 07/17/2017 Family History Medical History Relation Comments Hypertension Father Breast cancer Mother Diabetes Mother Hypertension Mother Diabetes Sister 1 Thyroid disease Sister 1 Uterine cancer Sister 1 Diabetes Sister 2 Thyroid disease Sister 2 Relation Status Comments Father Mother Sister 1 Sister 2 Social History Tobacco Use Types Packs/Day Years Used Date Smoking Tobacco: Never Smokeless Tobacco: Never Alcohol Use Standard Drinks/Week Comments Yes 0 (1 standard drink = 0.6 oz pur e alcohol) rarely Education Answer Date Recorded Are you interested in more education? Not on carrie e 03/02/2023 Are you concerned about learning? Not on file 03/02/2023 No 03/02/2023 No 03/02/2023 Digital Access Answer Date Recorded No 04/02/2023 No 04/02/2023 No 04/02/2023 Reliable internet access at home? Not on file 04/02/2023 Device with a working camera? Not on file Comments No Sex and Gender Information Value Date Recorded Sex Assigned at Not on file Legal Sex Female 12:48 PM EDT Gender Identity Not on file Sexual Orientation Not on file Last Filed Vital Signs Vital Sign Reading Time Taken Comments Blood Pressure 126/74 08/05/2019 11:23 AM EDT Pulse - - Temperature - - Respiratory Rate - - Oxygen Saturation - - Inhaled Oxygen Concentration - - Weight 117.9 kg (260 lb) 08/05/2019 11:23 AM EDT Height 170.2 cm (5' 7 ) 08/05/2019 11:23 AM EDT Body Mass Index 40.72 08/05/2019 11:23 AM EDT Plan of Treatment Health Maintenance Due Date Last Done Comments Adult Td,Tdap Booster 1959 LIPID PANEL 1959 TSH LEVEL 1959 DEPRESSION SCREENING 1971 HEPATITIS C SCREENING 1977 HIV ONE-TIME SCREENING (18-6 5 YEARS) 1977 MAMMOGRAM 1999 COLOGUARD 2004 COLONOSCOPY 2004 COLORECTAL CANCER SCREENING 2004 FIT TEST 2004 FOBT 2004 SIGMOIDOSCOPY 2004 VIRTUAL COLONOSCOPY 2004 PNEUMOCOCCAL VACCINES (50+ years) (1 of 1 - PCV) 2009 ZOSTER VACCINES (1 of 2) 2009 COVID-19 VACCINE (3 - 2023-2 5 season) 2024 11/30/2020, 11/09/2020 OSTEOPOROSIS SCREENING INITI AL (ONE-TIME) 2024 RSV VACCINE (1 - 1-dose 75+ series) 2034 SMOKING STATUS SCREENING (On ce After 26 Yrs) Completed 08/05/2019 HEPATITIS A VACCINES Aged Out No long er eligible based on patient's age to complete this topic HIB VACCINES Aged Out No longer eligi ble based on patient's age to complete this topic MENINGOCOCCAL VACCINES (ACWY) Aged Out No longer eligible based on patient's age to complete this topic MENINGOCOCCAL VACCINES (B) Aged Out N o longer eligible based on patient's age to complete this topic Medical Devices Not on file Insurance [facility] PPO EPO [facility] PPO [facility] PPO EPO [facility] PPO Care Teams Investigative Assistant Relationship Specialty Start Date End Date Mynor Sosa MD [address] [place] [address] PCP - General 11/04/16 Additional Source Comments The information contained in this document represents components of the legal health record. It is not the complete legal health record.[facility]
--- NOTE | 2025-05-26 17:04 | A.OFFPSYCH_ITS ---
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 Required: No Allergies No Known Allergies (No Known Allergies*) Allergy (Verified 04/27/25 08:37) Medication List - Last Reconciled 05/26/25 by Oitlia Wyatt APRN bupropion HCl XL 150 mg PO QAM cholecalciferol (vitamin D3) 125 mcg PO DAILY citalopram 10 mg (1/2 x 20 mg) PO DAILY ferrous sulfate 325 mg PO DAILY 90 days lamotrigine (Lamictal) 75 mg (3 x 25 mg) PO DAILY lansoprazole 30 mg PO DAILY levothyroxine 125 mcg PO DAILY mecobalamin (vitamin B12) 1,000 mcg PO DAILY 90 days trazodone 25 mg (1/2 x 50 mg) PO BEDTIME PRN HPI- Psychiatric Chief Complaint: f/u consultation HPI Narrative: pt seen via telehealth for follow up depression and anxiety pt reports feeling much improved depression improved with more enjoyment, motivation, more engagement with others reduced anxiety and reduced irritability sleep is still variable with early am waking no reported side effects no SI or HI discussed tx plan and having PCP follow Past Psychiatric History: 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 failed trials of lexapro (tremors) effexor (not effective) No IPLOC. Subjective Subjective Subjective Medication Compliance: Yes Side effects from medications: No Review of Systems Medical Review of Systems: unchanged Mental Status Exam Mental Status Exam Patient Appearance: Well Grooomed and Appropriate Patient Orientation: Person, Place, Time and Situation Level of Consciousness: Awake Patient Behavior: Appropriate Mood Description: Depressed (mild) and Cheerful Affect Description: Depressed (mild) and Cheerful Patient Cognition Impaired: Yes Ability to Follow Directions: Good Speech Pattern: Clear Memory Description: Intact Hallucinations: None Delusions: Not Present Thought Process: Intact Thought Content: positive for Intact Judgement: Good Telehealth Telehealth Telehealth Platform[email or web address] Location of provider rendering services: practice address Location of patient: address on file Patient Identification confirmed using: Name, : Yes Telehealth method: video Patient verbally consented to treatment: Yes Patient verbally consented to billing insurance company: Yes Patient informed of any privacy concerns related to visit: Yes Minutes spent on Phone/Video with Pt.: 20 Assessment and Plan Assessment & Plan (1) MDD (major depressive disorder), recurrent episode: Status: Acute Qualifiers: Major depression episode severity: moderate Qualified Code(s): F33.1 - Major depressive disorder, recurrent, moderate Code(s): F33.9 - Major depressive disorder, recurrent, unspecified (2) INGRID (generalized anxiety disorder): Status: Acute Code(s): F41.1 - Generalized anxiety disorder Plan lamictal 75mg daily celexa 10 mg daily and may consider reducing and stopping in future trazodone 25-50 mg at bedtime as needed wellbutrin XL 150mg daily follow up with PCP Counseling and coordination of Care Pt. Self Management counseling: Maintenance-social rhythm, Mod caffeine/ETOH intake and Problem solving Medication management counseling: Effectiveness, Side effects, Dosing range, Duration, Drug interaction and Adherence Diagnosis and Prognosis Counseling: Accuracy of diagnosis, Prognosis over time, Impact of diagnosis on life functions, Impact of family relationship, Problematic behaviors secondary to diagnosis and Adequacy of current interventions Details: I spent 28 minutes reviewing the record, seeing the patient and documenting in the medical record. Counseling provided to the patient/caregiver as outlined below. Addressed patient/caregiver concerns regarding current medication regime including effective adherence. Addressed patient/caregiver concerns regarding diagnosis and prognosis including accuracy of diagnosis, prognosis over time, impact of diagnosis. Addressed patient/caregiver concerns regarding impact of recent stressors. [facility] History (Updated 04/27/25 @ 08:54 by Tisha Forrester [facility]) Neuropathy Swelling Arthritis Thyroid disease GERD (gastroesophageal reflux disease) IBS (irritable bowel syndrome) Surgical History (Updated 06/02/24 @ 09:32 by Kary Mandel CMA) H/O bursectomy History of Jeanna-en-Y gastric bypass Family History (Updated 06/02/24 @ 09:25 by Kary Mandel CMA) Mother HTN (hypertension) Hypercholesteremia Diabetes Breast cancer Depression Maternal Grandmother Hypercholesteremia Paternal Grandfather COPD (chronic obstructive pulmonary disease) Father Alcoholism Social History Housing: House Patient Tobacco Use Status: Never used Tobacco e-Cigarette/Vaping Use: Never Used Second Hand Smoke Exposure: No service: No Current occupational status: employed 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
== END 2025-05-26 16:11 | disposition home or self-care (01) ==
LOC: HO.HOP 16:11
PROVIDERS: PCP Nurse Practitioner Family; Visit Provider Clinical Nurse Specialist Psychiatric/Mental Health
DX: F33.1 Major depressive disorder, recurrent, moderate (principal); F41.1 Generalized anxiety disorder
CPT/HCPCS: 99213